=== PATIENT | male | born 1970 | race Caucasian/White ===

== ENCOUNTER 2023-05-09 07:30 | Outpatient (RCR) | payer OTHER, SELFPAY | END 2023-09-06 23:59 | disposition home or self-care (01) | PROVIDERS: PCP Family Medicine; Visit Provider Family Medicine | DX: M25.511 Pain in right shoulder (principal); R20.0 Anesthesia of skin; R29.3 Abnormal posture; G47.9 Sleep disorder, unspecified; M25.512 Pain in left shoulder; Z51.89 Encounter for other specified aftercare | CPT/HCPCS: 97035; 97110; 97140; 97162 ==